=== PATIENT | female | born 1930 | race Caucasian/White ===

== ENCOUNTER → 2016-08-12 | Outpatient (CLI) | payer MEDICARE ==
[~2016-08-12] MED LIST: ASPIRIN 325MG325 MG PO; ASPIRIN EC325 MG PO; CEPHALEXIN500 MG PO; HYDROCODONE-APA1 TA1 PO; ISOSORBIDE MONO60 MG PO; LEVOTHYROXINE0.05 MG PO; PAROXETINE HCL10 MG PO; PRAVACHOL80 MG PO; TEKTURNA HCT PO
--- NOTE | 2016-08-12 10:10 | RADIOLOGY REPORT PS360 ---
[id number] VIEWS HISTORY: Follow-up fracture HEALING OF LEFT SHOULDER FX ORDERING PHYSICIAN: David Evangelista MD PATIENT AGE: 85 years COMPARISON: 07/29/2016 FINDINGS: Comminuted displaced fracture once again noted involving the humeral neck with 1 cm medial displacement of the distal fracture fragment. There is developing callus formation. IMPRESSION: Healing left humeral neck fracture
== END ==
LOC: RAD 09:12
DX: S42.202D Unspecified fracture of upper end of left humerus, subsequent encounter for fracture with routine healing (principal)

== ENCOUNTER → 2017-05-25 | Outpatient (CLI) | payer MEDICARE ==
[2017-05-25 12:30] LABS: HEMOGLOBIN 12.2 g/dL (12.2-16.2); LYMPH # 2.1 K/mm3 (0.7-4.5); LYMPH % 33.8 % (10-50.0)
[2017-05-25 13:07] LABS: BUN 29 mg/dL (7-18)
[2017-05-25 13:10] LABS: GFR (ESTIMATED) 31 ML/MIN (59-)
== END ==
LOC: LAB 12:06
PROVIDERS: Emergency Medicine
DX: E11.9 Type 2 diabetes mellitus without complications (principal); E03.9 Hypothyroidism, unspecified

== ENCOUNTER → 2017-06-01 | Outpatient (CLI) | payer MEDICARE ==
[2017-06-02 09:37] LABS: Folate (Folic Acid) 13.9 ng/mL (>3.0)
== END ==
LOC: LAB 09:40
PROVIDERS: Emergency Medicine
DX: D53.9 Nutritional anemia, unspecified (principal)

== ENCOUNTER 2017-06-05 18:04 | Emergency (ER) | payer MEDICARE ==
[~2017-06-05] VITALS: Ht 162.6 cm; Wt 76.7 kg
--- OUTSIDE RECORDS SUMMARY | 2017-06-05 18:15 | External Medical Summary Rpt | CCD ---
Author Author , FREDERICK Organization FREDERICK Address Unknown Phone [email or web address] Care Team Providers Care Web Applications Architect Name Role Phone [facility], Unavailable Unavailable [facility] Unavailable Unavailable [facility], [facility]available Unavailable [place], [facility], FELECIA Unavailable Unavailable [facility] Unavailable Unavailable [facility], [facility] Unavailable Unavailable [facility], [facility] Unavailable Unavailable & HAND, [facility] Unavailable Unavailable INTERNAL MED, [facility] CYT[facility] Unavailable Unavailable LAB, PATHOLOGY & CYTOLOGY LAB [facility] Unavailable Unavailable [facility] Unavailable Unavailable OF [facility] Purpose Continuity of Care Document - 06-18-2011 through 2016 Problems Code Diagnosis DOS Provider Status 6826 CELLULITIS 03-01-2013 COMBINED AND ABSCESS PHYSICIANS OF [place]G [place] EXCEPT FOOT 86779 AFTER-CATAR 02-08-2013 [facility] ACT, OBSCURING VISION 57195 UNSPECIFIED 02-08-2013 [facility] PTOSIS OF EYELID 16162 PAIN IN OR 02-08-2013 [facility] AROUND EYE V431 LENS 02-08-2013 [facility] REPLACED BY OTHER MEANS 2449 UNSPECIFIED 02-04-2013 [facility] HYPOTHYROID INTERNAL ISM MED 32113 DIAB W/O 02-04-2013 [facility] COMP TYPE [facility] II/UNS NOT INC STATED UNCNTRL 2662 OTHER 02-04-2013 [facility] B-COMPLEX VAL[facility] DEFICIENCIE INTERNAL S MED 2724 OTHER AND 02-04-2013 [facility] UNSPECIFIED [facility] INTERNAL HYPERLIPIDE MED BRANDON 4019 UNSPECIFIED 02-04-2013 [facility] ESSENTIAL [facility] HYPERTENSIO INTERNAL N MED V4365 KNEE JOINT 12-15-2012 [facility] REPLAC[facility] ORTHOPAEDIC BY OTHER & HAND MEANS V6709 FOLLOW-UP 12-15-2012 [facility] EXAMINATION [facility]OP[facility]EDIC FOLLOWING & HAND OTHER SURGERY 88560 SQUAMOUS 11-08-2012 [facility] CELL SURGEONS OF [place] LEXINGTO SKIN OTH UNS PARTS FACE 92150 UNSPECIFIED 08-11-2012 [facility] SUBJECTIVE VISUAL DISTURBANCE 63341 BLEPHAROCHA 08-11-2012 [facility] LASIS 63156 OSTEOARTHRO 07-12-2012 [facility] S UNSPEC VALLEY WHETHER INTERNAL GEN/LOC MED UNSPEC SITE V0481 NEED 04-16-2012 [facility] PROPHYLACTI [facility] C INTERNAL VACCINATION MED &INOCULATIO N FLU 7804 DIZZINESS 04-09-2012 [facility] GIDDINESS INTERNAL MED 65136 UNSPECIFIED 03-24-2012 [facility] ABNORMAL [facility] MAMMOGRAM INC 61247 OTHER 03-24-2012 [facility] F[facility] IM[facility]ING ASS RADIOLOGICA L EXAM BREAST V571 OTHER 12-05-2011 [facility] THERAPY INC V5481 AFTERCARE 11-24-2011 [facility] FOLLOWING [facility]OPAEDIC JOINT & HAND REPLACEMENT 11185 INF DUE OTH 11-11-2011 [facility] GM-NEGATIVE HOSP ORGANISMS CCE & UNS SITE 2689 UNSPECIFIED 11-11-2011 [facility] VITAMIN D [facility] DEFICIENCY HOSP 412 OLD 11-11-2011 [facility] MYOCARDIAL [facility] INFARCTION HOSP 5990 URINARY 11-11-2011 [facility] TRACT [facility] INFECTION HOSP SITE NOT SPECIFIED 73639 LOC 11-11-2011 [facility] OSTEOARTHRO [facility] S NOT SPEC HOSP PRIM/SEC LOWER LEG 40199 PAIN IN 11-11-2011 [facility], RADIOLOGY LOWER LEG ASSOC 6101 DIFFUSE 09-01-2011 [facility] [address] LUMP OR 09-01-2011 [facility] BREAST CLINIC OF BABS 47039 NUCLEAR 08-26-2011 [facility]IA [facility] SCLEROSIS 6102 FIBROADENOS 08-20-2011 PATHOLOGY & IS OF CYTOLOGY BREAST LAB 73328 OTHER 08-20-2011 PATHOLOGY & SPECIFIED CYTOLOGY DISORDERS LAB OF BREAST 66747 MAMMOGRAPHI 08-20-2011 [facility] MEDICAL MICROCALCIF IMAGING ASS ICATION 27513 INCONCLUSIV 08-20-2011 [facility] INC 94150 CORTICAL 07-15-2011 [facility]IA SHORTY SENILE CATARACT V7612 OTHER 07-09-2011 [facility] SCREENING [facility] MAMMOGRAM IMAGING ASS V762 SCREENING 06-18-2011 PATHOLOGY & FOR CYTOLOGY MALIGNANT LAB NEOPLASM OF THE CERVIX 272.4 E86.0 DEHYDRATION E87.1 HYPO-OSMOLA LITY AND HYPONATREMI A M79.662 PAIN IN LEFT LOWER LEG S00.81XA ABRASION OF OTHER PART OF HEAD, INITIAL ENCOUNTER S02.2XXA FRACTURE OF NASAL BONES, INIT ENCNTR FOR CLOSED FRACTURE S42.292A OTH DISP FX OF UPPER END OF LEFT HUMERUS, INIT FOR CLOS FX S61.219A LACERATION W/O FB OF UNSP FINGER W/O DAMAGE TO NAIL, INIT S61.419A LACERATION WITHOUT FOREIGN BODY OF UNSP HAND, INIT ENCNTR T14.8 OTHER INJURY OF UNSPECIFIED BODY REGION Results Labs Lab Lab Date Result Refere Interp Status Commen Order Detail nces retati t Range on Vitamin B12 ser/plas (06-01-2017 09:42) Vitamin = 64 211-946 complet B12 017 pg/mL ed ser/stephanie 09:42 s Comment: Effective June 08, 2017 the reference interval Comment: for Vitamin B12 will be changing to: 232-1245 pg/mL. Comment: Performed at: [facility] Comment: [id number], [place] [id number] Comment: Aircraft Structure Mechanic: Aubrey Gore PhD, Phone: [phone] Serum or plasma folate measurement (mass (06-01-2017 09:42) Serum = 13.9 >3.0 complet or 017 ng/mL ed plasma 09:42 folate measure ment (mass Comment: Comment: A serum folate concentration of less than 3.1 ng/mL is Comment: considered to represent clinical deficiency. CBC w auto diff (05-25-2017 09:20) [place] % = 8.2 % 1.7-9.3 complet 017 ed 09:20 Automat 2 = 0.0 0-0.2 complet ed 017 K/MM3 ed blood 09:20 basophi l count (count/ vo Baso % = 0.5 % 0.1-2.0 complet 017 ed 09:20 Automat 2 = 0.4 0.0-0.4 complet ed 017 K/mm3 ed blood 09:20 eosinop hil count Automat = 7.0 % 0.1-12. complet ed 017 0 ed blood 09:20 eosinop hils/10 0 leukocy t Blood = 3.1 1.8-7.8 complet granulo 017 K/mm3 ed cytes 09:20 automat ed count (numb Granulo = 50.5 37.0-80 complet cyte 017 % .0 ed percent 09:20 age Blood = 39.2 37.0-47 complet hematoc 017 % .0 ed rit 09:20 (volume fractio n) Blood = 12.2 12.2-16 complet hemoglo 017 g/dL .2 ed bin 09:20 measure ment (mass/v olum Absolut = 2.1 0.7-4.5 complet e 017 K/mm3 ed lymphoc 09:20 yte count Lymphoc = 33.8 10-50.0 complet yte 017 % ed count, 09:20 blood, automat ed Mean = 31.8 27-31.2 complet corpusc 017 pg ed ular 09:20 hemoglo bin (MCH) determ Automat = 31.3 31.8-35 complet ed 017 g/dl .4 ed erythro 09:20 cyte mean corpusc ular h Automat = 101.6 82.2-97 complet ed 017 fl .8 ed erythro 09:20 cyte mean corpusc ular v Absolut = 0.5 0.1-1.0 complet e 017 K/mm3 ed monocyt 09:20 e count Automat = 7.8 7.4-10. complet ed 017 fl 4 ed blood 09:20 platele t mean volume eula Blood = 197 142-424 complet platele 017 K/mm3 ed t count 09:20 Red = 3.86 4.2-5.4 complet blood 017 M/mm3 ed cell 09:20 count Automat = 14.2 11.5-17 complet ed 017 % .5 ed erythro 09:20 cyte distrib ution width Blood = 6.2 4.8-10. complet leukocy 017 K/MM3 8 ed yulissa 09:20 count (number /volume ) Hemoglobin A1c measurement (05-25-2017 09:20) Hemoglo 05-25-2 5.8 % 0.0-7.0 complet bin A1c 017 ed 09:20 Comment: < 6% NON-DIABETIC LEVEL Comment: < 7% CONTROLLED DIABETIC LEVEL Comment: > 8% POORLY CONTROLLED DIABETIC LEVEL Comprehensive metabolic panel (05-25-2017 09:20) Serum 11-20-2 = 1.0 1.1-1.8 complet or 017 ed plasma 09:20 albumin /globul in mass ra Serum 05-25-2 = 3.6 3.4-5.0 complet or 017 gm/dL ed plasma 09:20 albumin measure ment (mas Serum 05-25-2 = 93 46-116 complet or 017 U/L ed plasma 09:20 alkalin e phospha tase eula Serum 05-25-2 = 0.3 0.2-1.0 complet or 017 mg/dL ed plasma 09:20 total bilirub in measure m Serum 05-25-2 = 29 7-18 complet or 017 mg/dL ed plasma 09:20 urea nitroge n measure men Serum 05-25-2 = 9.1 8.5-10. complet or 017 mg/dL 1 ed plasma 09:20 calcium measure ment (mas Serum 05-25-2 = 109 98-107 complet or 017 mmoL/L ed plasma 09:20 chlorid e measure ment (mo Carbon 2 = 27 21.0-32 complet dioxide 017 mmoL/L .0 ed 09:20 measure ment Serum 05-25-2 = 1.6 0.55-1. complet or 017 mg/dL 02 ed plasma 09:20 creatin ine measure ment ( Estimat 05-25-2 = 31 59- complet ed 017 ML/MIN ed glomeru 09:20 lar filtrat ion rate (GF Comment: REFERENCE RANGE: >60 ML/MIN/1.73 SQUARE METERS Comment: If this patient is -Iraqi, then multiply the Comment: result by 1.210. Serum 20-2 = 3.5 1.3-3.2 complet globuli 017 gm/dL ed n 09:20 measure ment (mass/v olume) Serum 05-25-2 = 99 74-106 complet or 017 mg/dL ed plasma 09:20 glucose measure ment (mas Serum 11-20-2 = 5.1 3.5-5.1 complet potassi 017 mmoL/L ed um 09:20 measure ment Serum 05-25-2 = 145 136-145 complet sodium 017 mmoL/L ed measure 09:20 ment Serum 05-25-2 = 21 15-37 complet or 017 U/L ed plasma 09:20 asparta te aminotr ansfera ALT 05-25-2 = 18 12-78 complet (SGPT) 017 U/L ed ser/stephanie 09:20 s Protein 2 = 7.1 6.4-8.2 complet total 017 gm/dL ed ser/stephanie 09:20 s Lipid profile (05-25-2017 09:20) Total 05-25-2 = 283 < 200 complet cholest 017 mg/dL ed efrain 09:20 measure ment Serum 05-25-2 = 52.0 40-60 complet or 017 MG/DL ed plasma 09:20 cholest efrain in HDL measu Serum 2 = 201.6 0-130 complet or 017 mg/dL ed plasma 09:20 cholest efrain in LDL measu Serum 05-25-2 = 147 30-200 complet or 017 mg/dL ed plasma 09:20 triglyc eride measure ment Serum 05-25-2 = 29.4 0-40 complet or 017 ed plasma 09:20 cholest efrain in VLDL stephanie Thyroxine (05-25-2017 09:20) Thyroxi 05-25-2 = 6.0 4.7-13. complet ne 017 ug/dl 3 ed 09:20 Serum or plasma thyroid stimulating horm (05-25-2017 09:20) Serum 05-25-2 = 10.61 0.358-3 complet or 017 uIU/ml .740 ed plasma 09:20 thyroid stimula ting horm Hemoglobin A1c in Blood (05-25-2017 09:20) Hemoglo 5.8 % 0.0% Normal complet bin A1c 017 - ed in 09:20 7.0% Blood Hemoglobin A1c in Blood (02-23-2017 10:05) Hemoglo 5.7 % 0.0% Normal complet bin A1c 017 - ed in 10:05 7.0% Blood Procedures Procedure DOS Code Location Performer Comment TOTAL 8154 [facility] KNEE 2 [facility] HOSP NT Encounters Encounter Start End Date Code Location Performer Type Date [facility] - 3 3 [facility] - 2 2 [facility] - 2 2 [facility] - 2 2 [facility] - 2 2 [facility] - 2 2 [facility] - 2 2 [facility]
--- OUTSIDE RECORDS SUMMARY | 2017-06-05 18:15 | External Medical Summary Rpt | CCD ---
Author Author , FREDERICK Organization FREDERICK Address Unknown Phone [email or web address] Care Team Providers Care Classified Advertising Clerk Name Role Phone [facility], Unavailable Unavailable [facility] Unavailable Unavailable [facility], [facility] Unavailable Unavailable [place], [facility] FELECIA SHORTY, FELECIA Unavailable Unavailable [facility] Unavailable [facility] INC, [facility] Unavailable Unavailable [facility], [facility] Unavailable Unavailable & HAND, [facility] Unavailable Unavailable INTERNAL MED, [facility]Y [facility] CYTOLOGY Unavailable Unavailable LAB, PATHOLOGY & CYTOLOGY LAB [facility] Unavailable Unavailable [facility], [facility] Unavailable Unavailable OF [facility] OF BABS Purpose Continuity of Care Document - 06-18-2011 through 2016 Problems Code Diagnosis DOS Provider Status 6826 CELLULITIS 03-01-2013 COMBINED AND ABSCESS PHYSICIANS OF LEG [place] EXCEPT FOOT 78770 AFTER-CATAR 02-08-2013 FELECIA SHORTY ACT, OBSCURING VISION 07923 UNSPECIFIED 02-08-2013 FELECIA SHORTY PTOSIS OF EYELID 33463 PAIN IN [place] 02-08-2013 FELE[facility] SHORTY AROUND EYE V431 LENS 02-08-2013 [facility] REPLACED BY OTHER MEANS 2449 UNSPECIFIED 02-04-2013 [facility] HYPOTHYROID INTERNAL ISM MED 35161 DIAB W/O 02-04-2013 [facility] COMP TYPE [facility] II/UNS NOT INC STATED UNCNTRL 2662 OTHER 02-04-2013 [facility] B-COMPLEX VALLEY DEFICIENCIE INTERNAL S MED 2724 OTHER AND 02-04-2013 [facility] UNSPECIFIED VALLEY INTERNAL HYPERLIPIDE MED BRANDON 4019 UNSPECIFIED 02-04-2013 [facility] ESSENTIAL [facility] HYPERTENSIO INTERNAL N MED V4365 KNEE JOINT 12-15-2012 [facility]THOPAEDIC BY OTHER & HAND MEANS V6709 FOLLOW-UP 12-15-2012 [place] EXAMINATION [facility]OPAEDIC FOLLOWING & HAND OTHER SURGERY 60342 SQUAMOUS 11-08-2012 PLASTIC CELL SURGEONS OF [place] SKIN OTH UNS PARTS FACE 01565 UNSPECIFIED 08-11-2012 [facility] SUBJECTIVE VISUAL DISTURBANCE 93721 BLEPHAROCHA 08-11-2012 [facility] LASIS 29516 OSTEOARTHRO 07-12-2012 [facility] S UNSPEC VALLEY WHETHER INTERNAL GEN/LOC MED UNSPEC SITE V0481 NEED 04-16-2012 [facility] PROPHYLACTI VALLEY C INTERNAL VACCINATION MED &INOCULATIO N FLU 7804 DIZZINESS 04-09-2012 [facility] GIDDINESS INTERNAL MED 18295 UNSPECIFIED 03-24-2012 [facility] ABNORMAL [facility] MAMMOGRAM INC 91328 OTHER 03-24-2012 [place] ABNORMAL [facility]ICAL FINDING IMAGING ASS RADIOLOGICA L EXAM BREAST V571 OTHER 12-05-2011 [facility] THERAPY INC V5481 AFTERCARE 11-24-2011 [place] FOLLOWING ORTHOPAEDIC JOINT & HAND REPLACEMENT 68522 INF DUE OTH 11-11-2011 [facility] GM-NEGATIVE HOSP ORGANISMS CCE & UNS SITE 2689 UNSPECIFIED 11-11-2011 [facility] VITAMIN D [facility] DEFICIENCY HOSP 412 OLD 11-11-2011 [facility] MYOCARDIAL [facility] INFARCTION HOSP 5990 URINARY 11-11-2011 [facility] TRACT [facility] INFECTION HOSP SITE NOT SPECIFIED 28479 LOC 11-11-2011 [facility] OSTEOARTHRO [facility] S NOT SPEC HOSP PRIM/SEC LOWER LEG 03391 PAIN IN 11-11-2011 [facility], RADIOLOGY LOWER LEG ASSOC 6101 DIFFUSE 09-01-2011 [facility] [address] LUMP OR 09-01-2011 W[facility]'S [facility]ASS IN [facility] BREAST CLINIC OF BABS 06843 NUCLEAR 08-26-2011 FELE[facility]IA SHORT[facility] SCLEROSIS 6102 FIBROADENOS 08-20-2011 PATHOLOGY & IS OF CYTOLOGY BREAST LAB 42969 OTHER 08-20-2011 PATHOLOGY & SPECIFIED CYTOLOGY DISORDERS LAB OF BREAST 99649 MAMMOGRAPHI 08-20-2011 [facility] MEDICAL MICROCALCIF IMAGING ASS ICATION 79073 INCONCLUSIV 08-20-2011 [facility] MAMMOGRAM MEM [facility] INC 25394 CORTICAL 07-15-2011 [facility]LE[facility]IA SHORT[facility] SENILE CATARACT V7612 OTHER 07-09-2011 [place] SCREENING MEDICAL MAMMOGRAM IMAGING ASS V762 SCREENING [...] changing to: 232-1245 pg/mL. Comment: Performed at: [facility] Comment: [id number], [place] [phone] Comment: Toll Line Mechanic: Aubrey Gore PhD, Phone: [phone] Serum or plasma folate measurement (mass (06-01-2017 09:42) Serum = 13.9 >3.0 complet or 017 ng/mL ed plasma 09:42 folate measure ment (mass Comment: Comment: A serum folate concentration of less than 3.1 ng/mL is Comment: considered to represent clinical deficiency. CBC w auto diff (05-25-2017 09:20) [place] % = 8.2 % 1.7-9.3 complet 017 [...] SQUARE METERS Comment: If this patient is -[place], then multiply the Comment: result by 1.210. [...] Comment TOTAL 8154 CENTRAL CENTRAL KNEE [address] [facility] [facility] HOSP NT Encounters Encounter Start End Date Code Location Performer Type Date [facility] - 3 3 [facility] - 2 2 [facility] - 2 2 [facility] - 2 2 [facility] - 2 2 [facility] - 2 2 [facility] - 2 2 [facility]
--- OUTSIDE RECORDS SUMMARY | 2017-06-05 18:16 | External Medical Summary Rpt ---
Author Author FREDERICK Production, [employer] Organization [employer] Address Unknown Phone Unavailable Results Cobalamin (Vitamin B12) [Mass/volume] in Serum Observa Value Referen Units Interpr Notes Date tion ce etation Range Cobalamin 211 - 946 pg/mL Low Effecti Jun 01 (Vitamin ve 2017 9:42 B12) June [Mass/vol 2016 ume] in the Serum reference interval* *for Vitamin B12 will be changing to: 232-1245 pg/mL.Per formed at: [facility] [address] [id number] Pairer Inspector: Aubrey Gore PhD, Phone: [phone] Folate [Mass/volume] in Serum or Plasma Observa Value Referen Units Interpr Notes Date tion ce etation Range Folate >3.0 ng/mL No A serum Jun 01 [Mass/vol informati folate 2017 9:42 ume] in on in concentra AM Serum or source tion of Plasma data less than 3.1 ng/mL isconside red to represent clinical deficienc y. Comprehensive metabolic 2000 panel in Serum or Plasma Observa Value Referen Units Interpr Notes Date ti ce etation Range Albumin/G 1.1 - 1.8 No Low No May 25 lobulin informati informati 2017 9:20 [Mass on in on in AM ratio] in source source Serum or data data Plasma Albumin 3.4 - 5.0 gm/dL Normal No May 25 [Mass/vol informati 2016 9:20 ume] in on in AM Serum or source Plasma data Alkaline 46 - 116 U/L Normal No May 25 phosphata informati 2016 9:20 se on in AM [Enzymati source c data activity/ volume] in Serum or Plasma Bilirubin 0.2 - 1.0 mg/dL Normal No May 25 .total informati 2016 9:20 [Mass/vol on in AM ume] in source Serum or data Plasma Urea 7 - 18 mg/dL High No May 25 nitrogen informati 2016 9:20 [Mass/vol on in AM ume] in source Serum or data Plasma Calcium 8.5 - mg/dL Normal No May 25 [Mass/vol 10.1 informati 2016 9:20 ume] in on in AM Serum or source Plasma data Chloride 98 - 107 mmoL/L High No May 25 [Moles/vo informati 2016 9:20 lume] in on in AM Serum or source Plasma data Carbon 21.0 - mmoL/L Normal No May 25 dioxide, 32.0 informati 2016 9:20 total on in AM [Moles/vo source lume] in data Serum or Plasma Creatinin 0.55 - mg/dL High No May 25 e 1.02 informati 2016 9:20 [Mass/vol on in AM ume] in source Serum or data Plasma Estimated 59- ML/MIN Low REFERENCE May 25 RANGE: 2016 9:20 glomerula >60 AM r ML/MIN/1. filtratio 73 SQUARE n rate METERSIf (GF this patient is -A merican, then multiply theresult by 1.210. Globulin 1.3 - 3.2 gm/dL High No May 25 [Mass/vol informati 2016 9:20 ume] in on in AM Serum source data Glucose 74 - 106 mg/dL Normal May 25 [Mass/vol informati 2016 9:20 ume] in on in AM Serum or source Plasma data Potassium 3.5 - 5.1 mmoL/L Normal No May 25 informati 2016 9:20 [Moles/vo on in AM lume] in source Serum or data Plasma Sodium 136 - 145 mmoL/L Normal No May 25 [Moles/vo informati 2016 9:20 lume] in on in AM Serum or source Plasma data Aspartate 15 - 37 U/L Normal No May 25 informati 2016 9:20 aminotran on in AM sferase source [Enzymati data c activity/ volume] in Serum or Plasma Alanine 12 - 78 U/L Normal No May 25 aminotran informati 2016 9:20 sferase on in AM [Enzymati source c data activity/ volume] in Serum or Plasma Protein 6.4 - 8.2 gm/dL Normal No May 25 [Mass/vol informati 2016 9:20 ume] in on in AM Serum or source Plasma data Lipid 1996 panel in Serum or Plasma Observa Value Referen Units Interpr Notes Date tion ce etation Range Cholester < 200 mg/dL High No May 25 ol inform2016 9:20 [Moles/vo on in AM lume] in source Unspecifi data ed specimen Cholester 40 - 60 MG/DL Normal No May 25 ol in HDL 2016 9:20 on in AM [Mass/vol source ume] in data Serum or Plasma Cholester 0 - 130 mg/dL High No May 25 ol in LDL 2016 9:20 on in AM [Mass/vol source ume] in data Serum or Plasma by calculati on Triglycer 30 - 200 mg/dL Normal No May 25 lilly 2016 9:20 [Moles/vo on in AM lume] in source Serum or data Plasma Cholester 0 - 40 No Normal No May 25 ol in informati inform2016 9:20 VLDL on in on in AM [Mass/vol source source ume] in data data Serum or Plasma Thyroxine (T4) [Mass/volume] in Serum or Plasma Observa Value Referen Units Interpr Notes Date tion ce etation Range Thyroxine 4.7 - ug/dl Normal No May 25 (T4) 13.3 2016 9:20 [Mass/vol on in AM ume] in source Serum or data Plasma Thyrotropin [Units/volume] in Serum or Plasma Observa Value Referen Units Interpr Notes Date tion ce etation Range Thyrotrop 0.358 - uIU/ml High No May 25 in 3.740 2016 9:20 [Units/vo on in AM lume] in source Serum or data Plasma Hemoglobin A1c in Blood Observa Value Referen Units Interpr Notes Date tion ce etation Range Hemoglo 5.8 0.0 - % Normal < 6% May 25 bin A1c 7.0 NON-EVITA 2017 in BETIC 9:20 AM Blood LEVEL< 7% CONTROL LED DIABETI C LEVEL> 8% POORLY CONTROL LED DIABETI C LEVEL CBC W Auto Differential panel in Blood Observa Value Referen Units Interpr Notes Date tion ce etation Range Basophils 0 - 0.2 K/MM3 Normal No May 252016 9:20 [#/volume on in AM ] in source Blood by data Automated count Basophils 0.1 - 2.0 % Normal No May 25 /2016 9:20 leukocyte on in AM s in source Blood by data Automated count Eosinophi 0.0 - 0.4 K/mm3 Normal No May 25 ls informati 2016 9:20 [#/volume on in AM ] in source Blood by data Automated count Eosinophi 0.1 - % Normal No May 25 ls/100 12.0 informati 2017 9:20 leukocyte on in AM s in source Blood by data Automated count Granulocy 1.8 - 7.8 K/mm3 Normal No May 25 yulissa informati 2016 9:20 [#/volume on in AM ] in source Blood by data Automated count Granulocy 37.0 - % Normal No May 25 yulissa/100 80.0 informati 2016 9:20 leukocyte on in AM s in source Blood by data Automated count Hematocri 37.0 - % Normal No May 25 t [Volume 47.0 informati 2016 9:20 on in AM Fraction] source of Blood data Hemoglobi 12.2 - g/dL Normal May 25 n 16.2 informati 2016 9:20 [Mass/vol on in AM ume] in source Blood data Lymphocyt 0.7 - 4.5 K/mm3 Normal No May 25 es informati 2016 9:20 [#/volume on in AM ] in source Unspecifi data ed specimen by Automated count Lymphocyt 10 - 50.0 % Normal No May 25 es informati 2016 9:20 [#/volume on in AM ] in source Unspecifi data ed specimen by Automated count Erythrocy 27 - 31.2 pg High May 25 te mean informati 2016 9:20 corpuscul on in AM ar source hemoglobi data n [Entitic mass] Erythrocy 31.8 - g/dl Low May 25 te mean 35.4 informati 2016 9:20 corpuscul on in AM ar source hemoglobi data n concentra tion [Mass/vol ume] by Automated count Erythrocy 82.2 - fl High May 25 te mean 97.8 informati 2016 9:20 corpuscul on in AM ar volume source [Entitic data volume] by Automated count Monocytes 0.1 - 1.0 K/mm3 Normal No May 25 informati 2016 9:20 [#/volume on in AM ] in source Blood by data Automated count Monocytes 1.7 - 9.3 % Normal No May 25 / informati 2016 9:20 leukocyte on in AM s in source Blood by data Automated count Platelet 7.4 - fl Normal No May 25 mean 10.4 2016 9:20 volume on in AM [Entitic source volume] data in Blood by Automated count Platelets 142 - 424 K/mm3 Normal No May 252016 9:20 [#/volume on in AM ] in source Blood data Erythrocy 4.2 - 5.4 M/mm3 Low No May 25 yulissa 2016 9:20 [#/volume on in AM ] in source Amniotic data fluid Erythrocy 11.5 - % Normal No May 25 te 17.5 informati 2016 9:20 distribut on in AM ion width source [Entitic data volume] by Automated count Leukocyte 4.8 - K/MM3 Normal No May 25 s 10.8 2016 9:20 [#/volume on in AM ] in source Blood data Hemoglobin A1c in Blood Observa Value Referen Units Interpr Notes Date tion ce etation Range Hemoglo 5.7 0.0 - % Normal < 6% Feb 23 bin A1c 7.0 NON-EVITA 2017 in BETIC 10:05 Blood LEVEL< AM 7% CONTROL LED DIABETI C LEVEL> 8% POORLY CONTROL LED DIABETI C LEVEL Comprehensive metabolic 2000 panel in Serum or Plasma Observa Value Referen Units Interpr Notes Date tion ce etation Range Albumin/G 1.1 - 1.8 No Normal No Feb 23 lobulin informati informati 2016 [Mass on in on in 10:05 AM ratio] in source source Serum or data data Plasma Albumin 3.4 - 5.0 gm/dL Normal No Feb 23 [Mass/vol informati 2016 ume] in on in 10:05 AM Serum or source Plasma data Alkaline 46 - 116 U/L Normal No Feb 23 phosphata inform2016 se on in 10:05 AM [Enzymati source c data activity/ volume] in Serum or Plasma Bilirubin 0.2 - 1.0 mg/dL Normal No Feb 23 .total informati 2016 [Mass/vol on in 10:05 AM ume] in source Serum or data Plasma Urea 7 - 18 mg/dL High No Feb 23 nitrogen informati 2016 [Mass/vol on in 10:05 AM ume] in source Serum or data Plasma Calcium 8.5 - mg/dL Normal No Feb 23 [Mass/vol 10.1 informati 2016 ume] in on in 10:05 AM Serum or source Plasma data Chloride 98 - 107 mmoL/L Normal No Feb 23 [Moles/vo informati 2016 lume] in on in 10:05 AM Serum or source Plasma data Carbon 21.0 - mmoL/L Normal No Feb 23 dioxide, 32.0 inform2016 total on in 10:05 AM [Moles/vo source lume] in data Serum or Plasma Creatinin 0.55 - mg/dL High No Feb 23 e 1.02 inform2016 [Mass/vol on in 10:05 AM ume] in source Serum or data Plasma Estimated 59- ML/MIN Low REFERENCE Feb 23 RANGE: 2017 glomerula >60 10:05 AM r ML/MIN/1. filtratio 73 SQUARE n rate METERSIf (GF this patient is -A merican, then multiply theresult by 1.210. Globulin 1.3 - 3.2 gm/dL High No Feb 23 [Mass/vol informati 2016 ume] in on in 10:05 AM Serum source data Glucose 74 - 106 mg/dL Normal No Feb 23 [Mass/vol informati 2016 ume] in on in 10:05 AM Serum or source Plasma data Potassium 3.5 - 5.1 mmoL/L High No Feb 232016 [Moles/vo on in 10:05 AM lume] in source Serum or data Plasma Sodium 136 - 145 mmoL/L Normal No Feb 23 [Moles/vo informati 2016 lume] in on in 10:05 AM Serum or source Plasma data Aspartate 15 - 37 U/L Normal No Feb 232016 aminotran on in 10:05 AM sferase source [Enzymati data c activity/ volume] in Serum or Plasma Alanine 12 - 78 U/L Normal No Feb 23 aminotran 2016 sferase on in 10:05 AM [Enzymati source c data activity/ volume] in Serum or Plasma Protein 6.4 - 8.2 gm/dL Normal No Feb 23 [Mass/vol informati 2016 ume] in on in 10:05 AM Serum or source Plasma data Thyroxine (T4) [Mass/volume] in Serum or Plasma Observa Value Referen Units Interpr Notes Date tion ce etation Range Thyroxine 4.7 - ug/dl Normal No Feb 23 (T4) 13.3 inform2016 [Mass/vol on in 10:05 AM ume] in source Serum or data Plasma Thyrotropin [Units/volume] in Serum or Plasma Observa Value Referen Units Interpr Notes Date tion ce etation Range Thyrotrop 0.358 - uIU/ml High No Feb 23 in 3.740 inform2016 [Units/vo on in 10:05 AM lume] in source Serum or data Plasma CBC W Auto Differential panel in Blood Observa Value Referen Units Interpr Notes Date tion ce etation Range Basophils 0 - 0.2 K/MM3 Normal No Feb 23 inform2016 [#/volume on in 10:05 AM ] in source Blood by data Automated count Basophils 0.1 - 2.0 % Normal No Feb 23 /100 inform2016 leukocyte on in 10:05 AM s in source Blood by data Automated count Eosinophi 0.0 - 0.4 K/mm3 High No Feb 23 ls 2016 [#/volume on in 10:05 AM ] in source Blood by data Automated count Eosinophi 0.1 - % Normal No Feb 23 ls/100 12.0 inform2016 leukocyte on in 10:05 AM s in source Blood by data Automated count Granulocy 1.8 - 7.8 K/mm3 Normal No Feb 23 yulissa 2016 [#/volume on in 10:05 AM ] in source Blood by data Automated count Granulocy 37.0 - % Normal No Feb 23 yulissa/100 80.0 2016 leukocyte on in 10:05 AM s in source Blood by data Automated count Hematocri 37.0 - % Normal No Feb 23 t [Volume 47.0 2016 on in 10:05 AM Fraction] source of Blood data Hemoglobi 12.2 - g/dL Normal No Feb 23 n 16.2 2016 [Mass/vol on in 10:05 AM ume] in source Blood data Lymphocyt 0.7 - 4.5 K/mm3 Normal No Feb 23 es inform2016 [#/volume on in 10:05 AM ] in source Unspecifi data ed specimen by Automated count Lymphocyt 10 - 50.0 % Normal No Feb 23 es inform2016 [#/volume on in 10:05 AM ] in source Unspecifi data ed specimen by Automated count Erythrocy 27 - 31.2 pg High No Feb 23 te mean 2017 corpuscul on in 10:05 AM ar source hemoglobi data n [Entitic mass] Erythrocy 31.8 - g/dl Normal No Feb 23 te mean 35.4 2016 corpuscul on in 10:05 AM ar source hemoglobi data n concentra tion [Mass/vol ume] by Automated count Erythrocy 82.2 - fl High No Feb 23 te mean 97.8 2016 corpuscul on in 10:05 AM ar volume source [Entitic data volume] by Automated count Monocytes 0.1 - 1.0 K/mm3 Normal No Feb 232016 [#/volume on in 10:05 AM ] in source Blood by data Automated count Monocytes 1.7 - 9.3 % Normal No Feb 23 /100 2016 leukocyte on in 10:05 AM s in source Blood by data Automated count Platelet 7.4 - fl Normal Feb 23 mean 10.4 2016 volume on in 10:05 AM [Entitic source volume] data in Blood by Automated count Platelets 142 - 424 K/mm3 Normal No Feb 232016 [#/volume on in 10:05 AM ] in source Blood data Erythrocy 4.2 - 5.4 M/mm3 Low No Feb 23 yulissa 2016 [#/volume on in 10:05 AM ] in source Amniotic data fluid Erythrocy 11.5 - % Normal No Feb 23 te 17.5 2016 distribut on in 10:05 AM ion width source [Entitic data volume] by Automated count Leukocyte 4.8 - K/MM3 Normal No Feb 23 s 10.8 2016 [#/volume on in 10:05 AM ] in source Blood data
--- OUTSIDE RECORDS SUMMARY | 2017-06-05 18:16 | External Medical Summary Rpt ---
[...] be changing to: 232-1245 pg/mL.Per formed at: [facility] [address] [id number] Trailer Sections Assembler: Aubrey Gore PhD, Phone: [phone] Folate [Mass/volume] in Serum or Plasma [...]
--- OUTSIDE RECORDS SUMMARY | 2017-06-05 18:16 | External Medical Summary Rpt | CCD ---
Author Author , FREDERICK MACK Address Unknown Phone [email or web address] Immunization Name Date Rout CVX Reac Dose Comm Prov Is Faci e tion ent ider Refu lity Give sed n Infl 08-2 0.5 Hist K[facility]AF No RITE uenz 2-20 mL oric JESSICA AID0 a 17 al AYMA 3938 Tri, Info N Adj rmat ion - Sour ce Unsp ecif ied Infl 08-2 Intr 141 999 Hist GSHA No GSHA uenz 2-20 amus oric NE NE a, 17 cula al Seas r Info onal rmat ion - Sour ce Unsp ecif ied Infl 11-0 Intr 140 0.5 Hist KHAF No RITE uenz 3-20 amus mL oric JESSICA AID0 a, 16 cula al AYMA 3938 P-Fr r Info N ee rmat ion - Sour ce Unsp ecif ied
--- OUTSIDE RECORDS SUMMARY | 2017-06-05 18:16 | External Medical Summary Rpt | CCD ---
Author Author , FREDERICK MACK Address Unknown Phone [email or web address] Care Team Providers Care Padder Name Role Phone [facility] Unavailable Unavailable [facility] Unavailable Unavailable [facility], [facility] Unavailable Unavailable [place], [facility] SHORT[facility], FELECIA Unavailable Unavailable [facility] Unavailable [facility], [facility] Unavailable Unavailable [facility]AG[facility], [facility] Unavailable Unavailable & HAND, [facility] Unavailable Unavailable INTERNAL MED, [facility]available Unavailable LAB, PATHOLOGY & CYTOLOGY LAB [facility] OF Unavailable Unavailable [facility], [facility]LAST[facility] OF [facility] Unavailable Unavailable OF [facility] Purpose Continuity of Care Document - 06-18-2011 through 2016 Problems Code Diagnosis DOS Provider Status 6826 CELLULITIS 03-01-2013 COMBIN[facility] AND ABSCESS PHYSICIANS OF [place] EXCEPT FOOT 39168 AFTER-CATAR 02-08-2013 FELECIA SHORTY ACT, OBSCURING VISION 52374 UNSPECIFIED 02-08-2013 FELECIA SHORTY PTOSIS OF EYELID 89478 PAIN IN OR 02-08-2013 [facility]LE[facility] AROUND EYE V431 LENS 02-08-2013 [facility] REPLACED BY OTHER MEANS 2449 UNSPECIFIED 02-04-2013 [facility] HYPOTHYROID INTERNAL ISM MED 62953 DIAB W/O 02-04-2013 [facility] II/UNS NOT INC STATED UNCNTRL 2662 OTHER 02-04-2013 [facility] B-COMPLEX VAL[facility] DEFICIENCIE INTERNAL S MED 2724 OTHER AND 02-04-2013 [facility] UNSPECIFIED [facility] INTERNAL HYPERLIPIDE MED BRANDON 4019 UNSPECIFIED 02-04-2013 [facility] ESSENTIAL [facility] HYPERTENSIO INTERNAL N MED V4365 KNEE JOINT 12-15-2012 [facility] REPLAC[facility] ORTHOPAEDIC BY OTHER & HAND MEANS V6709 FOLLOW-UP 12-15-2012 [facility] FOLLOWING & HAND OTHER SURGERY 61959 SQUAMOUS 11-08-2012 [facility] CELL SURGE[facility] OF CARCINOMA LEXINGTO SKIN OTH UNS PARTS FACE 73392 UNSPECIFIED 08-11-2012 [facility] SH[facility] SUBJECTIVE VISUAL DISTURBANCE 44765 BLEPHAROCHA 08-11-2012 [facility] LASIS 04612 OSTEOARTHRO 07-12-2012 [facility] S UNSPEC VALLEY WHETHER INTERNAL GEN/LOC MED UNSPEC SITE V0481 NEED 04-16-2012 [facility] PROPHYLACTI [facility] C INTERNAL VACCINATION MED &INOCULATIO N FLU 7804 DIZZINESS 04-09-2012 [facility] GIDDINESS INTERNAL MED 23310 UNSPECIFIED 03-24-2012 [facility]AL [facility] MAMMOGRAM INC 05347 OTHER 03-24-2012 [facility] RADIOLOGICA L EXAM BREAST V571 OTHER 12-05-2011 [facility] THERAPY INC V5481 AFTERCARE 11-24-2011 [facility] FOLLOWING [facility]OP[facility]EDIC JOINT & HAND REPLACEMENT 30339 INF DUE OTH 11-11-2011 [facility] GM-NEGATIVE HOSP ORGANISMS CCE & UNS SITE 2689 UNSPECIFIED 11-11-2011 [facility] VITAMIN D [facility]IGIOUS DEFICIENCY HOSP 412 OLD 11-11-2011 [facility] MYOCARDIAL RELIG[facility]OUS INFARCTION HOSP 5990 URINARY 11-11-2011 [facility] TRACT [facility] INFECTION HOSP SITE NOT SPECIFIED 13708 LOC 11-11-2011 [facility] OSTEOARTHRO RELIGIOUS S NOT SPEC HOSP PRIM/SEC LOWER [place] 94601 PAIN IN 11-11-2011 [facility] JOINT, RADIOLOGY [facility] [place] ASSOC 6101 DIFFUSE 09-01-2011 [facility] [address] LUMP OR 09-01-2011 [facility] IN [facility] BRE[facility] 10703 NUCLEAR 08-26-2011 FELECIA SHORTY SCLEROSIS 6102 FIBROADENOS 08-20-2011 PATHOLOGY & IS OF CYTOLOGY BREAST LAB 74397 OTHER 08-20-2011 PATHOLOGY & SPECIFIED CYTOLOGY DISORDERS LAB OF BREAST 86123 MAMMOGRAPHI 08-20-2011 [facility] MEDICAL MICROCALCIF IMAGING ASS ICATION 97687 INCONCLUSIV 08-20-2011 [facility] MAMMOGRAM [facility] INC 31628 CORTICAL 07-15-2011 FELECIA SHORTY SENILE CATARACT V7612 OTHER 07-09-2011 [place] SCREENING MEDICAL MAMMOGRAM IMAGING ASS V762 SCREENING 06-18-2011 PATHOLOGY & FOR CYTOLOGY MALIGNANT LAB NEOPLASM OF THE CERVIX Procedures Procedure DOS Code Location Performer Comment TOTAL 8154 C[facility]AL CENTRAL KNEE 2 RELIGIOUS RELIGIOUS [facility]P NT Encounters Encounter Start End Date Code Location Performer Type Date [facility] - 3 3 [facility] - 2 2 [facility] - 2 2 [facility] 2 2 [facility] - 2 2 [facility] - 2 2 [facility] - 2 2 [facility]
--- OUTSIDE RECORDS SUMMARY | 2017-06-05 18:16 | External Medical Summary Rpt | CCD ---
Author Author , FREDERICK MACK Address Unknown Phone [email or web address] Care Team Providers Care Ingot Buggy Operator Name Role Phone [facility], Unavailable Unavailable [facility] Unavailable Unavailable [facility]OC, [facility] Unavailable Unavailable [place], [facility] [place] FELECIA SHORTY, FELECIA Unavailable Unavailable [facility] Unavailable Unavailable INC, [facility] Unavailable Unavailable IMAGING [facility], [facility] Unavailable Unavailable & HAND, [facility] Unavailable Unavailable INTERNAL MED, [facility] Unavailable Unavailable LAB, PATHOLOGY & CYTOLOGY LAB [facility] OF Unavailable Unavailable [facility], PLASTIC SURGEONS OF [facility] Unavailable Unavailable OF [facility] Purpose Continuity of Care Document - 06-18-2011 through 2016 Problems Code Diagnosis DOS Provider Status 6826 CELLULITIS 03-01-2013 COMBINED AND ABSCESS PHYSICIANS OF [place] EXCEPT FOOT 62033 AFTER-CATAR 02-08-2013 FELECIA SHORTY ACT, OBSCURING VISION 06715 UNSPECIFIED 02-08-2013 FELECIA SHORTY PTOSIS OF EYELID 46035 PAIN IN OR 02-08-2013 FELECIA SHORTY AROUND EYE V431 LENS 02-08-2013 FELE[facility]IA SHORTY REPLACED BY OTHER MEANS 2449 UNSPECIFIED 02-04-2013 [facility] HYPOTHYROID INTERNAL ISM MED 13502 DIAB W/O 02-04-2013 [facility] COMP TYPE [facility] II/UNS NOT INC STATED UNCNTRL 2662 OTHER 02-04-2013 [facility] B-COMPLEX VALLEY DEFICIENCIE INTERNAL S MED 2724 OTHER AND 02-04-2013 [facility] UNSPECIFIED VALLEY INTERNAL HYPERLIPIDE MED BRANDON 4019 UNSPECIFIED 02-04-2013 [facility] ESSENTIAL [facility] HYPERTENSIO INTERNAL N MED V4365 KNEE JOINT 12-15-2012 [facility] REPLACEMENT ORTHOPAEDIC BY OTHER & HAND MEANS V6709 FOLLOW-UP 12-15-2012 [place] EXAMINATION [facility]OPAEDIC FOLLOWING & HAND OTHER SURGERY 36266 SQUAMOUS 11-08-2012 PLASTIC CELL SURGEONS OF [place] LEXINGTO SKIN OTH UNS PARTS FACE 57428 UNSPECIFIED 08-11-2012 FELECIA SHORTY SUBJECTIVE VISUAL DISTURBANCE 19577 BLEPHAROCHA 08-11-2012 FELECIA SHORTY LASIS 92493 OSTEOARTHRO 07-12-2012 [facility] S UNSPEC VALLEY WHETHER INTERNAL GEN/LOC MED UNSPEC SITE V0481 NEED 04-16-2012 [facility] PROPHYLACTI [facility] C INTERNAL VACCINATION MED &INOCULATIO N FLU 7804 DIZZINESS 04-09-2012 [facility] GIDDINESS INTERNAL MED 80692 UNSPECIFIED 03-24-2012 [facility] MAMMOGRAM INC 45027 OTHER 03-24-2012 [place] [facility] FINDING IMAGING ASS RADIOLOGICA L EXAM BREAST V571 OTHER 12-05-2011 [facility] THERAPY INC V5481 AFTERCARE 11-24-2011 [place] FOLLOWING [facility]THOPAEDIC JOINT & HAND REPLACEMENT 56036 INF DUE OTH 11-11-2011 [facility] GM-NEGATIVE HOSP ORGANISMS CCE & UNS SITE 2689 UNSPECIFIED 11-11-2011 [facility] VITAMIN D CONGREGATIONAL DEFICIENCY HOSP 412 OLD 11-11-2011 [facility] MYOCARDIAL CON[facility]REGATIONAL INFARCTION HOSP 5990 URINARY 11-11-2011 [facility] TRACT [facility] INFECTION HOSP SITE NOT SPECIFIED 21080 LOC 11-11-2011 [facility] OSTEOARTHRO CONGREGATIONAL S NOT SPEC HOSP PRIM/SEC LOWER LEG 37992 PAIN IN 11-11-2011 [facility] JOINT, RADIOLOGY [facility]OWER [place] ASSOC 6101 DIFFUSE 09-01-2011 [facility] [address] LU[place] 09-01-2011 [facility] BREAST [facility] 10546 NUCLEAR 08-26-2011 FELECIA SHORTY SCLEROSIS 6102 FIBROADENOS 08-20-2011 PATHOLOGY & IS OF CYTOLOGY BREAST LAB 00406 OTHER 08-20-2011 PATHOLOGY & SPECIFIED CYTOLOGY DISORDERS LAB OF BREAST 63391 MAMMOGRAPHI 08-20-2011 [facility] MEDICAL MICROCALCIF IMAGING ASS ICATION 06324 INCONCLUSIV 08-20-2011 [facility] MAMMOGRAM MEM [facility]OS[facility] INC 15820 CORTICAL 07-15-2011 FELECIA SHORTY SENILE CATARACT V7612 OTHER 07-09-2011 [place] SCREENING [facility]ICAL MAMMOGRAM IMAGING ASS V762 SCREENING 06-18-2011 PATHOLOGY & FOR CYTOLOGY MALIGNANT LAB NEOPLASM OF THE CERVIX Procedures Procedure DOS Code Location Performer Comment TOTAL 8154 [facility] CENTRAL KNEE 2 [facility] HOSP NT Encounters Encounter Start End Date Code Location Performer Type Date [facility] - 3 3 [facility] - 2 2 [facility] - 2 2 [facility] - 2 2 [facility] - 2 2 [facility] - 2 2 [facility] - 2 2 [facility]
--- OUTSIDE RECORDS SUMMARY | 2017-06-05 18:16 | External Medical Summary Rpt | CCD ---
Author Author , FREDERICK MACK Address Unknown Phone [email or web address] Immunization Name Date Rout CVX Reac Dose [...]
--- NOTE | 2017-06-05 18:56 | Emergency Room Report ---
History of Present Illness Time Seen by [id number] Presenting Problem in Triage Pt arrived:Wheelchair Presenting Problem:PT TRIPPED AND FELL AND HIT HER HEAD ON THE FLOOR. PT DENIES ANY NECK/BACK PAIN OR LOC. 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 N Clinical Suspician of Infection? N Mental Status: 1 - Regular (Normal Baseline) Sepsis Risk:Low Sepsis Risk Have you (or family members/close friends) recently traveled outside the [place]? N If Yes, where/when: Have you had exposure to infectious disease within the past month? N TB? Other? Specify: Gaping, 3 cm laceration to right eyebrow sustained in kitchen while bending over and fell with neg LOC, but struck head. 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 ALLERGIES Coded Allergies: hydrocodone (09/18/16) quinine (07/13/16) Home Medications Reported Medications Levothyroxine Sodium (Levothyroxine) 0.05 MG PO DAILY ISOSORBIDE MONONITRATE (Isosorbide Mononitrate ER) 40 MG PO DAILY ASPIRIN (Aspirin 325MG) 81 MG PO DAILY History Medical History General CAD? No Angina: Yes [place]: Yes Hypertension? Yes Hyperlipidemia? Yes CHF? No DVT? No PE? No COPD? No Asthma? No Anemia? No GERD? Yes Gastric ulcers? No GI Bleed? No Hernia? No Thyroid Problems? Yes Hypothyroidism? Yes CVA? No Seizures? No Diabetes? No Renal Insuffiency? No End Stage Renal Disease? No UTI? No Stones? No GB Disease: No Nephritic Syndrome? No Asplenia? No Hepatitis? No Sickle Cell Disease? No Arthritis? Yes Migraines? No Cataracts? No Glaucoma? No MRSA? No HIV? No TB? No Anxiety? No Depression? No Cancer? No More? Yes Additional hx: MACULAR DEGENERTAION Immunization Hx DT/Tetanus Unknown Flu 2014-FSN Pneumonia Received In Past Surgical Hx Previous Surgery?Y KNEE CARDIAC CATH HYSTERECTOMY CATARACTS Family History Family Hx Diabetes No CAD No Hypertension No Hyperlipidemia No Cancer No TB No Social History Smoking Hx Smoker: Never Smoker Tobacco: No Alcohol Alcohol: No Review of Systems All Other Systems Reviewed and Negative Skin see HPI Physical Exam Vital Signs Vital Signs Date Time Temp Pulse Resp B/P Pulse O2 O2 Flow FiO2 Ox Delivery Rate 06/05 1810 98.0 67 16 98 General Appearance normal appearance, WD/WN, no apparent distress Eye Exam - right eye other (3 cm gaping curved lac R brow), bilateral eye normal exam, bilateral eye PERRL, bilateral eye EOMI Ear, Nose, Throat hearing grossly normal (otherwise, atraumatic face) Neck normal inspection, non-tender, supple, full range of motion Respiratory Status Yes: trachea midline. No: respiratory distress. 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 No Results/Orders Current Medication Orders Sig/Nadeen Start time Last Medication Dose Route Stop Time Status Admin Tetanus/Diphtheria 0 .STK-MED ONE 06/05 1845 DC Toxoids Adsorbed IM Diphtheria/Pertussis/ 0.5 ML ONCE ONE 06/05 1830 CAN Tetanus Vacc IM 06/05 1831 Lidocaine/Epinephrine 10 ML ONCE ONE 06/05 1830 CAN SC 06/05 1831 Lidocaine/Epinephrine 0 .STK-MED ONE 06/05 1828 DC .ROUTE Procedures Laceration/Wound Repair Laceration/Wound Repair Risks/benefits discussed with pt/guardian? Yes Tetanus status up to date (old records reviewed/updated) Wound Location face Wound Length (cm) 3 Wound's Depth, Shape sucutaneous tissue, linear (curvilinear) Wound Explored clean Irrigated w/ Saline (ccs) 50 Wound Prep Hibiclens Anesthesia Lidocaine w/Epi Volume Anesthetic (ccs) 2 Wound Debrided none Wound Repaired With sutures Suture Size/Type 5:0, Ethilon Layer Closure Yes Deep Layer Suture Size/Type 5:0, Vicryl Total Number Sutures 7 Sterile Dressing Applied No Departure Departure Time of Disposition 1854 Disposition DC Home or Self Care(routine) Clinical Impression Primary Impression: Laceration of eyebrow, right Qualifiers: Encounter type: initial encounter Qualified Code: S01.111A - Laceration without foreign body of right eyelid and periocular area, initial encounter Condition STABLE Referrals Ed Peoples MD Patient Instructions Laceration Repair Additional Instructions suture removal, Dr. Peoples, one week. Discharge Counseling Counseled pt/family regarding diagnosis, home care, follow up needs ED Critical Care Critical Care No at [id number]
--- NOTE | 2017-06-05 18:56 | Emergency Room Report ---
History of Present Illness Time Seen by [id number] Presenting Problem in Triage Pt arrived:Wheelchair Presenting Problem:PT TRIPPED AND FELL AND HIT HER HEAD ON THE FLOOR. PT DENIES ANY NECK/BACK PAIN OR LOC. 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 N Clinical Suspician of Infection? N Mental Status: 1 - Regular (Normal Baseline) Sepsis Risk:Low Sepsis Risk Have you (or family members/close friends) recently traveled outside the [place]? N If Yes, where/when: Have you had exposure to infectious disease within the past month? N TB? Other? Specify: Gaping, 3 cm laceration to right eyebrow sustained in kitchen while bending over and fell with neg LOC, but struck head. 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 ALLERGIES Coded Allergies: hydrocodone (09/18/16) quinine (07/13/16) Home Medications Reported Medications Levothyroxine Sodium (Levothyroxine) 0.05 MG PO DAILY ISOSORBIDE MONONITRATE (Isosorbide Mononitrate ER) 40 MG PO DAILY ASPIRIN (Aspirin 325MG) 81 MG PO DAILY History Medical History General CAD? No Angina: Yes [place]: Yes Hypertension? Yes Hyperlipidemia? Yes CHF? No DVT? No PE? No COPD? No Asthma? No Anemia? No GERD? Yes Gastric ulcers? No GI Bleed? No Hernia? No Thyroid Problems? Yes Hypothyroidism? Yes CVA? No Seizures? No Diabetes? No Renal Insuffiency? No End Stage Renal Disease? No UTI? No Stones? No GB Disease: No Nephritic Syndrome? No Asplenia? No Hepatitis? No Sickle Cell Disease? No Arthritis? Yes Migraines? No Cataracts? No Glaucoma? No MRSA? No HIV? No TB? No Anxiety? No Depression? No Cancer? No More? Yes Additional hx: MACULAR DEGENERTAION Immunization Hx DT/Tetanus Unknown Flu 2014-FSN Pneumonia Received In Past Surgical Hx Previous Surgery?Y KNEE CARDIAC CATH HYSTERECTOMY CATARACTS Family History Family Hx Diabetes No CAD No Hypertension No Hyperlipidemia No Cancer No TB No Social History Smoking Hx Smoker: Never Smoker Tobacco: No Alcohol Alcohol: No Review of Systems All Other Systems Reviewed and Negative Skin see HPI Physical Exam Vital Signs Vital Signs Date Time Temp Pulse Resp B/P Pulse O2 O2 Flow FiO2 Ox Delivery Rate 06/05 1810 98.0 67 16 98 General Appearance normal appearance, WD/WN, no apparent distress Eye Exam - right eye other (3 cm gaping curved lac R brow), bilateral eye normal exam, bilateral eye PERRL, bilateral eye EOMI Ear, Nose, Throat hearing grossly normal (otherwise, atraumatic face) Neck normal inspection, non-tender, supple, full range of motion Respiratory Status Yes: trachea midline. No: respiratory distress. 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 No Results/Orders Current Medication Orders Sig/Nadeen Start time Last Medication Dose Route Stop Time Status Admin Tetanus/Diphtheria 0 .STK-MED ONE 06/05 1845 DC Toxoids Adsorbed IM Diphtheria/Pertussis/ 0.5 ML ONCE ONE 06/05 1830 CAN Tetanus Vacc IM 06/05 1831 Lidocaine/Epinephrine 10 ML ONCE ONE 06/05 1830 CAN SC 06/05 1831 Lidocaine/Epinephrine 0 .STK-MED ONE 06/05 1828 DC .ROUTE Procedures Laceration/Wound Repair Laceration/Wound Repair Risks/benefits discussed with pt/guardian? Yes Tetanus status up to date (old records reviewed/updated) Wound Location face Wound Length (cm) 3 Wound's Depth, Shape sucutaneous tissue, linear (curvilinear) Wound Explored clean Irrigated w/ Saline (ccs) 50 Wound Prep Hibiclens Anesthesia Lidocaine w/Epi Volume Anesthetic (ccs) 2 Wound Debrided none Wound Repaired With sutures Suture Size/Type 5:0, Ethilon Layer Closure Yes Deep Layer Suture Size/Type 5:0, Vicryl Total Number Sutures 7 Sterile Dressing Applied No Departure Departure Time of Disposition 1854 Disposition DC Home or Self Care(routine) Clinical Impression Primary Impression: Laceration of eyebrow, right Qualifiers: Encounter type: initial encounter Qualified Code: S01.111A - Laceration without foreign body of right eyelid and periocular area, initial encounter Condition STABLE Referrals Ed Peoples MD Patient Instructions Laceration Repair Additional Instructions suture removal, Dr. Peoples, one week. Discharge Counseling Counseled pt/family regarding diagnosis, home care, follow up needs ED Critical Care Critical Care No at [id number]
[2017-06-05 19:09] VITALS: BP 147/82
== END 2017-06-05 19:10 | disposition home or self-care (01) ==
LOC: ER 18:04
PROC: 0HQ1XZZ Repair Face Skin, External Approach (ICD-10-PCS; principal; 2017-06-05)
DX: S01.111A Laceration without foreign body of right eyelid and periocular area, initial encounter (principal); Y92.019 Unspecified place in single-family (private) house as the place of occurrence of the external cause; W01.10XA Fall on same level from slipping, tripping and stumbling with subsequent striking against unspecified object, initial encounter